=== PATIENT | male | born 1985 | race Caucasian/White ===

== ENCOUNTER → 2022-06-28 | Outpatient (CLI) | payer BC ==
--- NOTE | 2022-06-28 20:04 | CT ---
EXAMINATION TYPE: CT abdomen w con CT DLP: 328.9 mGycm, Automated exposure control for dose reduction was used. DATE OF EXAM: 06/28/2022 7:39 PM COMPARISON: None CLINICAL INDICATION:Male, 36 years old with history of K52.9 Colitis; Colitis; RUQ pain TECHNIQUE: Axial CT of the abdomen . Sagittal and coronal reformats were created on a separate works tation. Contrast used:100ml mL of Isovue 300 with IV Contrast, Oral contrast used: with Oral Contrast FINDINGS: LOWER CHEST: Unremarkable ABDOMEN LIVER: Diffusely hypoattenuating parenchyma. GALLBLADDER AND BILE DUCTS: Unremarkable. PANCREAS: Unremarkable. SPLEEN: Unremarkable. ADRENAL GLANDS: Unremarkable. KIDNEYS AND URETERS: No evidence of hydronephrosis. There are bilateral renal calculi visualized. PELVIS BLADDER: Unremarkable REPRODUCTIVE: Unremarkable. ABDOMEN & PELVIS STOMACH AND BOWEL: No evidence of bowel obstruction. Appendix is normal. PERITONEUM: No evidence of pneumoperitoneum or free fluid. VASCULATURE: No evidence of aortic aneurysm. MUSCULOSKELETAL: No acute osseous abnormalities LYMPH NODES: No gross evidence for lymphadenopathy. SOFT TISSUE/ABDOMINAL WALL: Unremarkable IMPRESSION: 1. No evidence for acute abdominal process. 2. Hepatic steatosis 3. Bilateral nonobstructing renal calculi 4. Normal appendix and normal gallbladder 5. No hydronephrosis.
== END | disposition home or self-care (01) ==
LOC: RADCTMAIN 18:45
PROVIDERS: ATTEND Family Medicine
DX: K29.70 Gastritis, unspecified, without bleeding (principal); K76.0 Fatty (change of) liver, not elsewhere classified; N20.0 Calculus of kidney
CPT/HCPCS: 74160; Q9967 ×2

== ENCOUNTER 2024-09-20 06:43 | Emergency (ER) | payer BC ==
[2024-09-20 06:47] VITALS: BP 156/104; PULSE 84; RESP 18; TEMP 98.9
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
== END 2024-09-20 07:02 | disposition home or self-care (01) ==
LOC: EC 06:43
DX: N48.89 Other specified disorders of penis (principal); F17.200 Nicotine dependence, unspecified, uncomplicated
CPT/HCPCS: 99283